=== PATIENT | male | born 1990 | race Caucasian/White ===

== ENCOUNTER 2023-06-08 00:31 | Emergency (ER) | payer SELFPAY ==
[~2023-06-08] VITALS: Ht 175.3 cm; Wt 90.9 kg
[~2023-06-08 00:31] MED LIST: DEPAKOTE ER 50500 MG PO
[2023-06-08 00:34] VITALS: TEMP 98.4
[2023-06-08 01:47] LABS: ACETAMINOPHEN < 1.0 ug/mL (10-30); ALANINE AMINOTRANSFERASE 18 U/L (0-55); ALBUMIN 4.5 gm/dL (3.5-5.0); ALCOHOL(ethanol),MEDICAL < 10 mg/dL (0-10); ALKALINE PHOSPHATASE 54 U/L (40-150); ANION GAP 13 mmol/L (7-16); AST,SGOT 22 U/L (5-34); BILIRUBIN,TOTAL 0.6 mg/dL (0.2-1.2); BLOOD UREA NITROGEN 15 mg/dL (9-21); CALCIUM 9.7 mg/dL (8.4-10.2); CARBON DIOXIDE 20 mmol/L (22-29); CHLORIDE 109 mmol/L (98-107); CREATININE, serum 0.85 mg/dL (0.72-1.25); GLUCOSE 92 mg/dL (70-99); POTASSIUM 4.6 mmol/L (3.5-4.5); SALICYLATE < 5.0 mg/dL (15.0-30.0); SODIUM 142 mmol/L (136-145); TOTAL PROTEIN 7.2 gm/dL (6.2-8.1)
[2023-06-08 02:03] LABS: COLLECTION METHOD CLEAN CATCH
[2023-06-08 02:11] LABS: PH 5.5 (5.0-8.5); URINE APPEARANCE Clear (CLEAR/HAZY); URINE COLOR Yellow (YELLOW); URINE GLUCOSE Negative (NEGATIVE); URINE PROTEIN(semi-quant) Negative (NEGATIVE)
[2023-06-08 02:12] LABS: URINE BLOOD Negative (NEGATIVE); URINE KETONE 1+ (NEGATIVE); URINE NITRATE Negative (NEGATIVE); URINE UROBILINOGEN 0.2 E.U/dL (0.2-1.0)
[2023-06-08 02:15] LABS: BASO % 0.5 % (0.0-2.0); EOS # 0.1 K/mm3 (0.0-0.7); GRAN # 3.3 K/mm3 (1.4-6.5); GRAN % 55.5 % (42.2-75.2); HEMATOCRIT 42.8 % (42.0-52.0); HEMOGLOBIN 14.7 g/dl (13.5-18.0); LYMPH # 2.1 K/mm3 (1.2-3.4); LYMPH % 35.5 % (20.0-51.0); MEAN CELL VOLUME 93 fl (80.0-100.0); MEAN CORPUSCULAR HEMOGLOBIN 32 pg (27-31); MEAN CORPUSCULAR HGB CONC 34 g/dl (33.0-37.0); MEAN PLATELET VOLUME 8.6 fl (7.4-10.4); MONO # 0.4 K/mm3 (0.1-0.6); MONO % 7.3 % (1.7-9.3); PLATELET COUNT 223 K/mm3 (130-400); RED BLOOD COUNT 4.62 M/mm3 (4.20-5.60); REDCELL DISTRIBUTION WIDTH-CV 12.2 % (11.5-14.5)
[2023-06-08 02:18] LABS: URINE RBC 0-2 /hpf (0-2)
[2023-06-08 02:19] LABS: MUCOUS Present (NOT PRESENT); TRICYCLIC ANTIDEPRESS URINE NEGATIVE; URINE BACTERIA Rare /hpf (NONE SEEN)
[2023-06-09 00:11] VITALS: BP 115/75; PULSE 80
== END 2023-06-09 15:25 ==
LOC: COL.ER 00:31 → EDBD 00:32 → COL.ER 06-09 15:25
PROVIDERS: Nurse Practitioner Primary Care
DX: F30.9 Manic episode, unspecified (principal); R45.1 Restlessness and agitation; F17.210 Nicotine dependence, cigarettes, uncomplicated
CPT/HCPCS: J1630; J2060; J2250